=== PATIENT | female | born 1945 ===

== ENCOUNTER 2016-07-06 21:31 | Emergency (ER) | payer MEDICARE ==
[2016-07-06 21:49] VITALS: RESP 18
[2016-07-06] MEDS ORDERED: ASPIRIN 81 MG CHEW PO STA (22:48)
[2016-07-06] MEDS ORDERED: cloNIDine HCL 0.1 MG TAB PO STA (22:49)
--- NOTE | 2016-07-06 22:55 | ED ---
Chest Pain HPI - General Chief Complaint: Chest Pain Stated Complaint: Hypertension/SOB Time Seen by Provider: 07/06/16 22:22 Source: patient Mode of arrival: wheelchair Limitations: no limitations - History of Present Illness Initial Comments: This patient is a 70-year-old woman who presents to be evaluated for hypertension. Patient noticed that her blood pressure was approximately 200/ 110 this morning about 11 while she was out doing errands. Patient states that she was instructed to take a nitroglycerin of her blood pressure is over 190 systolic and so she did that. She checked her blood pressure few hours later and it remained elevated. She took another nitroglycerin. Her blood pressure was again elevated this evening and it was approximately 210/110 so she decided to be seen here. Patient states that she does feel like she has to take deeper breaths than usual, and that her chest is somewhat tight but she denies any pain. The tightness is all across the chest. She denies anginal symptoms of diaphoresis, nausea or vomiting, lightheadedness or syncope. MD Complaint: other (Hypertension) Onset/Timin -: hour(s) Pain Location: left chest, right chest Pain Radiation: none Severity: mild Quality: tightness Consistency: constant Improves With: nothing Worsens With: nothing Treatments Prior to Arrival: nitroglycerin - Related Data Home Medications Medication Instructions Recorded Confirmed Melatonin 10 mg PO HS 07/06/16 07/06/16 Nitroglycerin Sl Tabs [Nitrostat] 0.4 mg SUBLINGUAL Q5M PRN 07/06/16 07/06/16 amLODIPine [Norvasc] 10 mg PO DAILY 07/06/16 07/06/16 hydrALAZINE HCL [Apresoline] 25 mg PO BID-W/MEALS 07/06/16 07/06/16 Allergies Allergy/AdvReac Type Severity Reaction Status Date / Time No Known Allergies Allergy Verified 07/06/16 22:58 Review of Systems ROS Statement: Those systems with pertinent positive or pertinent negative responses have been documented in the HPI. ROS Other: All systems not noted in ROS Statement are negative. Constitutional: Denies: fever, chills Respiratory: Reports: as per HPI, dyspnea. Denies: cough, wheezes Cardiovascular: Reports: as per HPI, chest pain, edema. Denies: palpitations, dyspnea on exertion, orthopnea, syncope Gastrointestinal: Denies: abdominal pain, nausea, vomiting Genitourinary: Reports: frequency. Denies: dysuria, hematuria Skin: Denies: rash Neurological: Denies: headache, weakness, numbness Psychiatric: Reports: anxiety EKG Findings - EKG Results: EKG: interpreted by LYNDA PANDA, sinus rhythm (Rate 74 bpm), normal axis, normal QRS, normal ST/T - MO, Pacemaker, Normal: Normal tracing: normal tracing Past Medical History Past Medical History: Hypertension History of Any Multi-Drug Resistant Organisms: None Reported Past Surgical History: No Surgical Hx Reported Past Psychological History: No Psychological Hx Reported Smoking Status: Never smoker Past Alcohol Use History: None Reported Past Drug Use History: None Reported General Exam Limitations: no limitations General appearance: alert, in no apparent distress Head exam: Present: atraumatic, normocephalic Eye exam: Present: normal appearance. Absent: scleral icterus, conjunctival injection Respiratory exam: Present: normal lung sounds bilaterally. Absent: respiratory distress, wheezes, rales, rhonchi, stridor Cardiovascular Exam: Present: regular rate, normal rhythm, systolic murmur ( Rate 106 systolic ejection murmur). Absent: diastolic murmur, rubs, gallop GI/Abdominal exam: Present: soft. Absent: distended, tenderness, guarding, rebound, rigid Extremities exam: Present: normal inspection, normal capillary refill, pedal edema (There is trace edema just above the ankles bilaterally). Absent: calf tenderness Back exam: Present: normal inspection. Absent: CVA tenderness (R), CVA tenderness (L) Neurological exam: Present: alert Skin exam: Present: warm, dry, intact, normal color. Absent: rash Course Vital Signs 07/06/16 07/06/16 07/06/16 21:41 22:32 23:11 Temperature 97.6 F Pulse Rate 77 65 65 Pulse Rate [ 65 Nursing Tech ] Respiratory 18 18 18 Rate Blood Pressure 197/89 179/87 185/78 O2 Sat by Pulse 97 99 99 Oximetry 07/06/16 23:55 Temperature 98.2 F Pulse Rate 72 Pulse Rate [ Nursing Tech ] Respiratory 18 Rate Blood Pressure 145/72 O2 Sat by Pulse 99 Oximetry Disposition Clinical Impression: Hypertension Disposition: HOME SELF-CARE Condition: Good Instructions: Hypertension (ED) Referrals: Kimberly Robins MD [Primary Care Provider] - 1-2 days
[2016-07-06 23:03] LABS: Basophils # (A) 0.1 k/uL (0-0.2); Basophils % (A) 1 %; CHCM 32.7; Eosinophils # (A) 0.1 k/uL (0-0.7); Eosinophils % (A) 1 %; HCT 42.9 % (34.0-46.0); HDW 2.41; HGB 14.1 gm/dL (11.4-16.0); Luc # (Auto) 0.27; Luc % (Auto) 3; Lymphocytes # (A) 2.4 k/uL (1.0-4.8); Lymphocytes % (A) 22 %; MCH 28.4 pg (25.0-35.0); MCHC 32.9 g/dL (31.0-37.0); MCV 86.2 fL (80.0-100.0); Mean Platelet Volume 8.2; Monocytes # (A) 0.5 k/uL (0-1.0); Monocytes % (A) 5 %; Neutrophils # (A) 7.2 k/uL (1.3-7.7); Neutrophils % (A) 68 %; RBC 4.98 m/uL (3.80-5.40); RDW 14.2 % (11.5-15.5); WBC 10.5 k/uL (3.8-10.6); WBC (Perox) 10.42
[2016-07-06 23:14] LABS: ALT 49 U/L (9-52); AST 36 U/L (14-36); Alkaline Phosphatase 71 U/L (38-126); Anion Gap 12 mmol/L; Blood Urea Nitrogen 14 mg/dL (7-17); Calcium 9.7 mg/dL (8.4-10.2); Carbon Dioxide 25 mmol/L (22-30); Chloride 106 mmol/L (98-107); Glucose 118 mg/dL (74-99); Magnesium 2.5 mg/dL (1.6-2.3); Non-African American GFR(MDRD) >60 (>60 ml/min/1.73 sqM); Potassium 4.1 mmol/L (3.5-5.1); Sodium 143 mmol/L (137-145); Total Bilirubin 0.5 mg/dL (0.2-1.3); Total Protein 7.7 g/dL (6.3-8.2)
[2016-07-06 23:26] LABS: Creatine Kinase 88 U/L (30-135)
[2016-07-06 23:37] LABS: Creatine Kinase MB 0.8 ng/mL (0.0-2.4); Troponin I <0.012 ng/mL (0.000-0.034)
--- NOTE | 2016-07-06 23:40 | XR ---
EXAM: XR Chest, 1 View. CLINICAL HISTORY: Reason: chest pain TECHNIQUE: Frontal view of the chest. COMPARISON: No relevant prior studies available. FINDINGS: Lungs: Mild atelectatic changes. Pleural spaces: Unremarkable. No pneumothorax. Heart: Enlarged cardiac silhouette. Mediastinum: Prominent mediastinum, may be related to tortuous aorta. Bones/joints: No acute fracture. IMPRESSION: 1. Mild atelectatic changes. 2. Prominent mediastinum, may be related to tortuous aorta. Compare to prior studies if available. 3. Enlarged cardiac silhouette.
[2016-07-06 23:56] VITALS: BP 145/72; PULSE 72; TEMP 98.2
== END 2016-07-07 00:35 | disposition home or self-care (01) ==
LOC: EC 21:31 → SUPCPDRO 21:31 → EC 07-07 00:35
DX: I10 Essential (primary) hypertension (principal); R60.0 Localized edema; Z79.899 Other long term (current) drug therapy
CPT/HCPCS: 36415; 71010; 80053; 82550; 82553; 83735; 83880; 84484; 85025; 85379; 93005; 99285

== ENCOUNTER → 2017-11-01 | Outpatient (CLI) | payer MEDICARE ==
--- NOTE | 2017-11-01 10:36 | CT ---
EXAMINATION TYPE: CT heart w calcium score DATE OF EXAM: 11/01/2017 COMPARISON: None HISTORY: Screening for cardiovascular disorder. 213.9. Angina pectoris (I 20.9) per order. CT DLP: 53.9 mGycm Automated exposure control for dose reduction was used. CT CALCIUM SCORING Coronary calcium is a marker for plaque (fatty deposits) in a blood vessel or atherosclerosis (harden ing of the arteries). The presence and amount of calcium detected in a coronary artery by the CT sca n, indicates the presence and amount of atherosclerotic plaque. These calcium deposits appear years before the development of heart disease symptoms such as chest pain and shortness of breath. A calcium score is computed for each of the coronary arteries based upon the volume and density of th e calcium deposits. This can be referred to as your calcified plaque burden. It does not correspond directly to the percentage of narrowing in the artery but does correlate with the severity of the un derlying coronary atherosclerosis. PROCEDURE TECHNIQUE - Prospective Gating was used. Slice thickness: 3mm. Density threshold (HU): 130, Pixel threshold: 3, Algorithm: discrete. RESULTS Region: LM Calcium Score (Agatston): 0 Volume (mm3): 0 Mass (g): 0 Region: RCA Calcium Score (Agatston): 1 Volume (mm3): 2 Mass (g): 0.24 Region: LAD Calcium Score (Agatston): 0 Volume (mm3): 0 Mass (g): 0 Region: CX Calcium Score (Agatston): 0 Volume (mm3): 0 Mass (g): 0 TOTAL CALCIUM SCORE: 1 Calcification at level of aortic valve is present. Cardiomegaly is noted on localizer. There is mild to moderate left atrial and suspected left ventricular dilatation. Main pulmonary artery is enlarged at 3.4 cm axial image 3. CT findings consistent with underlying pulmonary artery hypertension. Adjace nt ascending aorta measures up to 3.9 cm in diameter. There is multilevel spurring in the visualized mid to lower thoracic spine. IMPRESSION: Calcium Score: 1-10 Implication: Minimal identifiable plaque. Risk of Coronary Artery Disease: Very unlikely, less than 10%. Other findings as noted above.
--- NOTE | 2017-11-01 11:03 | US ---
EXAMINATION TYPE: US thyroid st tissue head/neck DATE OF EXAM: 11/01/2017 COMPARISON: NONE CLINICAL HISTORY: E04.9 goiter. HARLAN GLAND SIZE: Right Lobe: 7.2 x 2.9 x cm Overall Parenchyma: heterogenous Left Lobe: 8.5 x 4.9 x 3.5 cm Overall Parenchyma: heterogeneous Isthmus Thickness: 2.4 cm NODULES RIGHT: # of nodules measured on right: 2 most discreet nodules 1. 1.4 X 1.3 x 1.0 cm hypoechoic solid nodule at the upper pole with poorly defined margins. This nodule is wider than tall and shows intranodular vascularity. 2. 0.7 X 0.7 x 0.7 cm hypoechoic mixed nodule at the upper lateral pole with well-defined margins. This nodule is wider as is tall and shows no intranodular vascularity. LEFT: # of nodules measured on left: 1 discreet nodule in multinodular thyroid 1. 1.9 X 2.4 x 2.0 cm hypoechoic mixed nodule at the lower pole with well-defined margins; with lc tral calcification. This nodule is wider than tall and shows intranodular vascularity. ISTHMUS: # of nodules measured in the isthmus: nodular borders without discreet nodule Bilateral neck scanned, no evidence of lymphadenopathy. IMPRESSION: Bilateral thyroid nodules with 2 nodules measuring greater than 1 cm. Thyroid tissue is heterogeneous correlate for thyroiditis.
== END | disposition home or self-care (01) ==
LOC: RADUSMAIN 07:53
PROVIDERS: ATTEND Internal Medicine
DX: E04.2 Nontoxic multinodular goiter (principal); I51.7 Cardiomegaly; I25.119 Atherosclerotic heart disease of native coronary artery with unspecified angina pectoris; I25.83 Coronary atherosclerosis due to lipid rich plaque; I28.8 Other diseases of pulmonary vessels
CPT/HCPCS: 75571; 76536

== ENCOUNTER → 2018-07-06 | Outpatient (CLI) | payer MEDICARE ==
--- NOTE | 2018-07-06 16:00 | US ---
EXAMINATION TYPE: US thyroid st tissue head/neck DATE OF EXAM: 07/06/2018 COMPARISON: 11/01/2017 CLINICAL HISTORY: 72-year-old female E04.1 thyroid nodule TECHNIQUE: Multiple sonographic images of the thyroid gland are obtained. FINDINGS: GLAND SIZE: Right Lobe: 7.8 x 2.7 x 3.1cm Overall Parenchyma: grossly heterogenous Left Lobe: 7.1 x 3.5 x 4.2 cm Overall Parenchyma: grossly heterogenous Isthmus Thickness: 0.7 cm NODULES RIGHT: # of nodules measured on right: 1 1. 0.7 X 0.5 x 0.6 cm hypoechoic mixed nodule at the mid pole with well-defined margins. This nodu le is wider than tall and shows no intranodular vascularity. Prior size: 0.7 x 0.7 x 0.7 cm LEFT: # of nodules measured on left: 1 1. 1.7 X 1.8 x 2.3 cm hypoechoic solid nodule at the lower pole with well-defined margins and calci fied area mid. This nodule is wider than tall and shows intranodular vascularity. Prior size: 1.9 x 2.0 x 2.4 cm ISTHMUS: # of nodules measured in the isthmus: 0 2nd nodule on right unable to be reproduced by today's ultrasound. Bilateral neck scanned, no evidence of lymphadenopathy. IMPRESSION: 1. Dominant nodule on the left 2.3 x 1.8 cm versus 2.4 x 2.0 cm, previously, slightly smaller in the interval. 2. Only a smaller nodule is now seen on the right. The previous dominant nodule at the right upper p ole is no longer identified. 3. There is some limitation due to the marked thyromegaly and severe heterogeneous echotexture.
== END | disposition home or self-care (01) ==
LOC: RADUSWWP 12:07
PROVIDERS: ATTEND Internal Medicine
DX: E04.1 Nontoxic single thyroid nodule (principal)
CPT/HCPCS: 76536

== ENCOUNTER 2021-08-19 10:34 | Emergency (ER) | payer MEDICARE ==
--- NOTE | 2021-08-19 11:01 | ED ---
General Adult HPI - General Chief complaint: Dizziness Stated complaint: High BP, dizziness, memory problems Source: patient, RN notes reviewed Mode of arrival: ambulatory Limitations: no limitations - History of Present Illness Initial comments: Patient is a 75-year-old female presents to the emergency room with complaints of sudden onset of dizziness and generalized weakness and headache which began earlier this morning. She reports that the dizziness has improved however she continues to have a headache. She states that she did check her blood pressure and blood sugars with the episode began as she has a history of diabetes and hypertension. She states that her blood pressure was slightly elevated in the 160 over 100s range blood sugar was normal at 107. She states that after not feeling well she called her neighbor who advised her to take aspirin consequently she had 2 full strength aspirin which she chewed. She noticed no changes in symptoms after taking the medication and also took a nitroglycerin which she had available to her she denies any changes in symptoms from either medication. She denies any vision changes or focal weakness or ataxia. She reports that she has not taken her blood pressure medications yet this morning. She denies any other complaints are consistent. - Related Data Home Medications Medication Instructions Recorded Confirmed Ascorbic Acid [Vitamin C] 500 mg PO DAILY 08/19/21 08/19/21 Cholecalciferol [Vitamin D3 (25 25 mcg PO DAILY 08/19/21 08/19/21 Mcg = 1000 Iu)] Lisinopril-Hctz 20-25 mg 1 tab PO DAILY 08/19/21 08/19/21 [Zestoretic 20-25] Magnesium 200 mg PO DAILY 08/19/21 08/19/21 Metoprolol Succinate [Toprol XL] 50 mg PO DAILY 08/19/21 08/19/21 Potassium Gluconate [Potassium 99 mg PO DAILY 08/19/21 08/19/21 Gluconate ER] metFORMIN HCL [Glucophage] 1,000 mg PO BID 08/19/21 08/19/21 Allergies Allergy/AdvReac Type Severity Reaction Status Date / Time No Known Allergies Allergy Verified 08/19/21 12:35 Review of Systems ROS Statement: Those systems with pertinent positive or pertinent negative responses have been documented in the HPI. ROS Other: All systems not noted in ROS Statement are negative. Past Medical History Past Medical History: Diabetes Mellitus, Hypertension History of Any Multi-Drug Resistant Organisms: None Reported Past Surgical History: No Surgical Hx Reported Past Psychological History: No Psychological Hx Reported Smoking Status: Never smoker Past Alcohol Use History: None Reported Past Drug Use History: None Reported General Exam Limitations: no limitations Course Vital Signs 08/19/21 10:36 Temperature 97.4 F L Pulse Rate 73 Respiratory 20 Rate Blood Pressure 167/103 O2 Sat by Pulse 97 Oximetry Medical Decision Making - Medical Decision Making CT brain without contrast showed age-related atrophic changes and chronic small vessel ischemia without acute intracranial process. EKG showed sinus rhythm without any ST abnormalities troponin negative. Blood pressure improved to 150s over 50s-60s without intervention. With normalization of blood pressure headache and dizziness resolved. No other significant lab abnormalities with the exception of drug screen positive for THC. Upon further discussion patient has been taking CBD oil along with a THC coming at bedtime for the last 2 months but last night she took an increased dose of her THC coming as she felt she had not gotten a significant piece in her mouth when she took it the first time. She is feeling much better without any complaints of the same. - Lab Data Result diagrams: 08/19/21 11:04 08/19/21 11:04 Lab Results 08/19/21 08/19/21 08/19/21 Range/Units 11:04 11:04 11:04 WBC 9.3 (3.8-10.6) k/uL RBC 4.81 (3.80-5.40) m/uL Hgb 13.7 (11.4-16.0) gm/dL Hct 43.2 (34.0-46.0) % MCV 89.8 (80.0-100.0) fL MCH 28.5 (25.0-35.0) pg MCHC 31.8 (31.0-37.0) g/dL RDW 14.4 (11.5-15.5) % Plt Count 221 (150-450) k/uL MPV 8.8 Neutrophils % 60 % Lymphocytes % 31 % Monocytes % 5 % Eosinophils % 1 % Basophils % 1 % Neutrophils # 5.5 (1.3-7.7) k/uL Lymphocytes # 2.9 (1.0-4.8) k/uL Monocytes # 0.4 (0-1.0) k/uL Eosinophils # 0.1 (0-0.7) k/uL Basophils # 0.1 (0-0.2) k/uL PT 10.1 (9.0-12.0) sec INR 0.9 (<1.2) Sodium 140 (137-145) mmol/L Potassium 4.0 (3.5-5.1) mmol/L Chloride 103 (98-107) mmol/L Carbon Dioxide 28 (22-30) mmol/L Anion Gap 9 mmol/L BUN 18 H (7-17) mg/dL Creatinine 0.72 (0.52-1.04) mg/dL Est GFR (CKD-EPI)AfAm >90 (>60 ml/min/1.73 sqM) Est GFR (CKD-EPI)NonAf 83 (>60 ml/min/1.73 sqM) Glucose 115 H (74-99) mg/dL Calcium 9.1 (8.4-10.2) mg/dL Total Bilirubin 0.5 (0.2-1.3) mg/dL AST 40 H (14-36) U/L ALT 29 (4-34) U/L Alkaline Phosphatase 57 (38-126) U/L Troponin I (0.000-0.034) ng/mL Total Protein 7.5 (6.3-8.2) g/dL Albumin 4.4 (3.5-5.0) g/dL Urine Color Urine Appearance (Clear) Urine pH (5.0-8.0) Ur Specific [place] (1.001-1.035) Urine Protein (Negative) Urine Glucose (UA) (Negative) Urine Ketones (Negative) Urine Blood (Negative) Urine Nitrite (Negative) Urine Bilirubin (Negative) Urine Urobilinogen (<2.0) mg/dL Ur Leukocyte Esterase (Negative) Urine RBC (0-5) /hpf Urine WBC (0-5) /hpf Ur Squamous Epith Cells (0-4) /hpf Urine Opiates Screen (NotDetected) Ur Oxycodone Screen (NotDetected) Urine Methadone Screen (NotDetected) Ur Propoxyphene Screen (NotDetected) Ur Barbiturates Screen (NotDetected) U Tricyclic Antidepress (NotDetected) Ur Phencyclidine Scrn (NotDetected) Ur Amphetamines Screen (NotDetected) U Methamphetamines Scrn (NotDetected) U Benzodiazepines Scrn (NotDetected) Urine Cocaine Screen (NotDetected) U Marijuana (THC) Screen (NotDetected) 08/19/21 08/19/21 Range/Units 11:04 11:04 WBC (3.8-10.6) k/uL RBC (3.80-5.40) m/uL Hgb (11.4-16.0) gm/dL Hct (34.0-46.0) % MCV (80.0-100.0) fL MCH (25.0-35.0) pg MCHC (31.0-37.0) g/dL RDW (11.5-15.5) % Plt Count (150-450) k/uL MPV Neutrophils % % Lymphocytes % % Monocytes % % Eosinophils % % Basophils % % Neutrophils # (1.3-7.7) k/uL Lymphocytes # (1.0-4.8) k/uL Monocytes # (0-1.0) k/uL Eosinophils # (0-0.7) k/uL Basophils # (0-0.2) k/uL PT (9.0-12.0) sec INR (<1.2) Sodium (137-145) mmol/L Potassium (3.5-5.1) mmol/L Chloride (98-107) mmol/L Carbon Dioxide (22-30) mmol/L Anion Gap mmol/L BUN (7-17) mg/dL Creatinine (0.52-1.04) mg/dL Est GFR (CKD-EPI)AfAm (>60 ml/min/1.73 sqM) Est GFR (CKD-EPI)NonAf (>60 ml/min/1.73 sqM) Glucose (74-99) mg/dL Calcium (8.4-10.2) mg/dL Total Bilirubin (0.2-1.3) mg/dL AST (14-36) U/L ALT (4-34) U/L Alkaline Phosphatase (38-126) U/L Troponin I <0.012 (0.000-0.034) ng/mL Total Protein (6.3-8.2) g/dL Albumin (3.5-5.0) g/dL Urine Color Colorless Urine Appearance Clear (Clear) Urine pH 6.5 (5.0-8.0) Ur Specific [place] 1.003 (1.001-1.035) Urine Protein Negative (Negative) Urine Glucose (UA) Negative (Negative) Urine Ketones Negative (Negative) Urine Blood Negative (Negative) Urine Nitrite Negative (Negative) Urine Bilirubin Negative (Negative) Urine Urobilinogen <2.0 (<2.0) mg/dL Ur Leukocyte Esterase Trace H (Negative) Urine RBC <1 (0-5) /hpf Urine WBC 2 (0-5) /hpf Ur Squamous Epith Cells <1 (0-4) /hpf Urine Opiates Screen Not Detected (NotDetected) Ur Oxycodone Screen Not Detected (NotDetected) Urine Methadone Screen Not Detected (NotDetected) Ur Propoxyphene Screen Not Detected (NotDetected) Ur Barbiturates Screen Not Detected (NotDetected) U Tricyclic Antidepress Not Detected (NotDetected) Ur Phencyclidine Scrn Not Detected (NotDetected) Ur Amphetamines Screen Not Detected (NotDetected) U Methamphetamines Scrn Not Detected (NotDetected) U Benzodiazepines Scrn Not Detected (NotDetected) Urine Cocaine Screen Not Detected (NotDetected) U Marijuana (THC) Screen Detected H (NotDetected) - EKG Data EKG Comments: Sinus rhythm, ventricular rate 64, RI interval 186 ms, QRS interval 95 ms, QT/QTC 395/407 ms Disposition Clinical Impression: Hypertension, Dizziness Disposition: HOME SELF-CARE Condition: Good Instructions (If sedation given, give patient instructions): Dizziness (ED), Hypertension in the Older Adult (ED) Additional Instructions: Please return to the Emergency Department if symptoms worsen or any other concerns. Is patient prescribed a controlled substance at d/c from ED?: No Referrals: Liz Rinaldi MD [Primary Care Provider] - 1-2 days Time of Disposition: 12:52
[2021-08-19 11:23] LABS: Appearance,Urine Clear (Clear); Bilirubin,Urine Negative (Negative); Blood,Urine Negative (Negative); Color,Urine Colorless; Glucose,Urine (UA) Negative (Negative); Ketones,Urine Negative (Negative); Leukocyte Esterase,Urine Trace (Negative); Nitrite,Urine Negative (Negative); PH, Urine 6.5 (5.0-8.0); Protein,Urine Negative (Negative); RBC,Urine <1 /hpf (0-5); Specific Gravity,Urine 1.003 (1.001-1.035); Squamous Epithelial Cell,Urine <1 /hpf (0-4); Urobilinogen,Urine <2.0 mg/dL (<2.0); WBC,Urine 2 /hpf (0-5)
[2021-08-19 11:25] LABS: INR 0.9 (<1.2); Prothrombin Time 10.1 sec (9.0-12.0)
[2021-08-19 11:28] LABS: Basophils # (A) 0.1 k/uL (0-0.2); Basophils % (A) 1 %; Eosinophils # (A) 0.1 k/uL (0-0.7); Eosinophils % (A) 1 %; HCT 43.2 % (34.0-46.0); HGB 13.7 gm/dL (11.4-16.0); Lymphocytes # (A) 2.9 k/uL (1.0-4.8); Lymphocytes % (A) 31 %; MCH 28.5 pg (25.0-35.0); MCHC 31.8 g/dL (31.0-37.0); MCV 89.8 fL (80.0-100.0); Mean Platelet Volume 8.8; Monocytes # (A) 0.4 k/uL (0-1.0); Monocytes % (A) 5 %; Neutrophils # (A) 5.5 k/uL (1.3-7.7); Neutrophils % (A) 60 %; Platelet Count 221 k/uL (150-450); RBC 4.81 m/uL (3.80-5.40); RDW 14.4 % (11.5-15.5); WBC 9.3 k/uL (3.8-10.6)
[2021-08-19 11:30] LABS: Amphetamine Screen,Urine Not Detected (NotDetected); Barbiturate Screen,Urine Not Detected (NotDetected); Benzodiazepines Screen,Urine Not Detected (NotDetected); Cocaine Screen,Urine Not Detected (NotDetected); Methadone Screen, Urine Not Detected (NotDetected); Opiate Screen,Urine Not Detected (NotDetected); Oxycodone Screen, Urine Not Detected (NotDetected); Phencyclidine Screen,Urine Not Detected (NotDetected); Tricyclic Antidepressant,Urine Not Detected (NotDetected); Urn Cannabinoid Scrn Detected (NotDetected)
[2021-08-19 11:31] LABS: ALT 29 U/L (4-34); African American GFR (CKD) >90 (>60 ml/min/1.73 sqM); Albumin 4.4 g/dL (3.5-5.0); Anion Gap 9 mmol/L; Blood Urea Nitrogen 18 mg/dL (7-17); Calcium 9.1 mg/dL (8.4-10.2); Carbon Dioxide 28 mmol/L (22-30); Chloride 103 mmol/L (98-107); Glucose 115 mg/dL (74-99); Non-African American GFR(CKD) 83 (>60 ml/min/1.73 sqM); Sodium 140 mmol/L (137-145); Total Bilirubin 0.5 mg/dL (0.2-1.3); Total Protein 7.5 g/dL (6.3-8.2)
[2021-08-19 11:40] LABS: AST 40 U/L (14-36); Alkaline Phosphatase 57 U/L (38-126)
--- NOTE | 2021-08-19 11:40 | CT ---
EXAMINATION TYPE: CT brain wo con DATE OF EXAM: 08/19/2021 COMPARISON: None HISTORY: Dizziness and headache. CT DLP: 1170.[address] of the facial bones was performed in the axial and coronal planes. Bone and soft tissu e window settings are submitted. No significant soft tissue swelling is appreciated. I do not see evidence for displaced facial bone fracture or depressed facial bone fracture. The globes are intact. Paranasal sinuses are well-aerated. IMPRESSION: 1. No evidence for depressed or displaced facial bone fracture.
[2021-08-19 13:12] VITALS: BP 144/53; PULSE 57; RESP 15; TEMP 97.3
== END 2021-08-19 13:24 | disposition home or self-care (01) ==
LOC: EC 10:34
DX: I10 Essential (primary) hypertension (principal); R42 Dizziness and giddiness; R53.1 Weakness; R51.9 Headache, unspecified; F12.90 Cannabis use, unspecified, uncomplicated; E11.9 Type 2 diabetes mellitus without complications; Z79.899 Other long term (current) drug therapy; Z79.84 Long term (current) use of oral hypoglycemic drugs
CPT/HCPCS: 36415; 70450; 80053; 80306; 81001; 84484; 85025; 85610; 93005; 99285